=== PATIENT | male | born 1980 | race Caucasian/White ===

== ENCOUNTER → 2019-12-12 14:59 | Outpatient (CLI) | payer SELFPAY ==
--- NOTE | 2019-12-12 | DI.RAD.S_ITS ---
PROCEDURE: XR CHEST 2V INDICATIONS: CHEST XR TO RULE OUT TUBERCULOSIS TECHNIQUE: 2 views of the chest were acquired. COMPARISON: None. FINDINGS: Surgical changes and devices: None. Lungs and pleura: Lungs are clear. No pleural effusions or pneumothorax. Mediastinum: Mediastinal contours are normal. Heart size is normal. Bones and chest wall: No suspicious bony abnormalities. Soft tissues appear unremarkable. IMPRESSION: Normal for age, no evidence of chronic active or acute tuberculosis. Dictated by: Trever Garvey M.D. on 12/12/2019 at 16:08 Approved by: Trever Garvey M.D. on 12/12/2019 at 16:09
== END ==
PROVIDERS: Referring Provider Nurse Practitioner; Visit Provider Nurse Practitioner
DX: Z11.1 Encounter for screening for respiratory tuberculosis (principal)
CPT/HCPCS: 71046

== ENCOUNTER → 2024-04-25 14:50 | Outpatient (CLI) | payer OTHER, SELFPAY | LOC: LAB 14:52 | PROVIDERS: PCP Physician Assistant Medical | DX: Z11.1 Encounter for screening for respiratory tuberculosis (principal) | CPT/HCPCS: 36415; 86480 ==